=== PATIENT | female | born 1955 | race Caucasian/White ===

== ENCOUNTER 2022-08-18 13:13 | Outpatient (CLI) | payer MEDICARE, OTHER | END 2022-08-18 13:14 | disposition home or self-care (01) | LOC: SCSMRI 13:13 | PROVIDERS: ATTEND Anesthesiology Pain Medicine | DX: M54.12 Radiculopathy, cervical region (principal); M75.102 Unspecified rotator cuff tear or rupture of left shoulder, not specified as traumatic; M75.122 Complete rotator cuff tear or rupture of left shoulder, not specified as traumatic; M47.812 Spondylosis without myelopathy or radiculopathy, cervical region | CPT/HCPCS: 72141 ==

== ENCOUNTER 2024-04-05 10:09 | Emergency (ER) | payer MEDICARE, OTHER ==
[2024-04-05] MEDS ORDERED: Lidocaine 1% PF 5 ML VIAL ONE (11:15)
[2024-04-05] MEDS ORDERED: CEFAZOLIN 1 GM VIAL ONE (12:18)
[2024-04-05] MEDS ORDERED: Sterile Water 10 ML ONE (12:19)
[2024-04-05] MEDS ORDERED: Boostrix 0.5 ML (Tdap) VIAL (>/=7 yrs of age) ONE (12:19)
== END 2024-04-05 13:18 | disposition home or self-care (01) ==
LOC: ERS 10:09
DX: S92.422B Displaced fracture of distal phalanx of left great toe, initial encounter for open fracture (principal); E11.9 Type 2 diabetes mellitus without complications; I10 Essential (primary) hypertension; E78.00 Pure hypercholesterolemia, unspecified; W01.0XXA Fall on same level from slipping, tripping and stumbling without subsequent striking against object, initial encounter; Z79.899 Other long term (current) drug therapy; Z23 Encounter for immunization
CPT/HCPCS: 73630; 90715; J0690; 12002; 90471; 96372

== ENCOUNTER 2024-04-16 14:14 | Emergency (ER) | payer MEDICARE, OTHER ==
[2024-04-16] MEDS ORDERED: Ketorolac Tromethamine 30 MG (1 mL) VIAL ONE (15:09)
[2024-04-16] MEDS ORDERED: Sodium Chloride 0.9% 100 ML ONE (15:10)
[2024-04-16] MEDS ORDERED: Piperacillin/Tazobactam 3.375 GM VIAL ONE (15:10)
[2024-04-16] MEDS ORDERED: Vancomycin (BATCH) 2 GM in Premix 1 BAG IVPB SCH (15:15)
[2024-04-16 15:17] LABS: #Basophils 0.09 10x3/uL (0.0-0.2); %Basophils 1.1 % (0.0-1.0); %Eosinophils 3.3 % (0.0-10.0); %Lymphocytes 20.7 % (21.0-51.0); %Monocytes 10.2 % (0.0-10.0); %Neutrophils 64.5 % (42.0-75.0); Hematocrit 40.6 % (36.0-47.0); Hemoglobin 13.3 g/dL (12.0-16.0); Mean Corpuscular HGB CONC 32.8 g/dL (32.0-36.0); Mean Corpuscular Hemoglobin 29.8 pg (27.0-31.0); Mean Platelet Volume 9.7 fL (7.4-10.4); Platelet Count 322 10x3/uL (130-400); Red Blood Cell (RBC) Count 4.46 mill/uL (4.20-5.40)
[2024-04-16 15:30] LABS: CRP,High Sensitivity (Inhouse) 0.51 mg/dL (< or = 0.5)
[2024-04-16 15:31] LABS: ALT (SGPT) 18 U/L (8-55); AST (SGOT) 21 U/L (5-34); Alkaline Phosphatase 63 U/L (40-110); Anion Gap 12 mmol/L (10-20); BUN (Urea Nitrogen) 39 mg/dL (9.8-20.1); Bilirubin, Total 1.3 mg/dL (0.2-1.2); Calc. Creatinine Clearance 0 mL/min (70-130); Calcium 9.3 mg/dL (7.8-10.44); Carbon Dioxide 27 mmol/L (23-31); Chloride 103 mmol/L (98-107); Estimated GFR 34; Globulin 3.1 g/dL (2.4-3.5); Glucose 94 mg/dL (80-115); Potassium 4.1 mmol/L (3.5-5.1); Protein, Total 7.1 g/dL (5.8-8.1); Sodium 138 mmol/L (136-145)
[2024-04-16] MEDS ORDERED: Fluconazole 100 MG TAB ONE (15:57)
== END 2024-04-16 16:19 | disposition home or self-care (01) ==
LOC: ERS 14:14
DX: L03.031 Cellulitis of right toe (principal); E11.9 Type 2 diabetes mellitus without complications; I10 Essential (primary) hypertension
CPT/HCPCS: 73630; 80053; 83605; 84145; 85025; 86141; 87040; 96365; 96375; 99283; J1885; J2543; J3370; 36415

== ENCOUNTER 2024-11-28 14:03 | Outpatient (CLI) | payer MEDICARE, OTHER | END 2024-11-28 14:04 | disposition home or self-care (01) | LOC: SCSMRI 14:03 | PROVIDERS: ATTEND Internal Medicine | DX: M47.24 Other spondylosis with radiculopathy, thoracic region (principal); M54.12 Radiculopathy, cervical region; M48.04 Spinal stenosis, thoracic region | CPT/HCPCS: 72141; 72146 ==